=== PATIENT | male | born 1935 | race Caucasian/White ===

== ENCOUNTER 2017-09-24 16:38 | Outpatient (CLI) | payer MEDICARE ==
[2017-09-24 16:57] LABS: #Basophils 0.1 thou/uL (0.0-0.2); #Eosinphils 0.1 thou/uL (0.0-0.7); #Lymphocytes 1.2 thou/uL (1.20-3.40); #Monocytes 0.5 thou/uL (0.11-0.59); #Neutrophils 3.3 thou/uL (1.40-6.50); %Basophils 1.1 % (0.0-1.0); %Eosinophils 1.5 % (0.0-10.0); %Lymphocytes 23.4 % (21.0-51.0); %Monocytes 9.9 % (0.0-10.0); Hematocrit 42.3 % (42.0-52.0); Mean Platelet Volume 10.2 fL (7.4-10.4); Red Blood Cell (RBC) Count 4.53 mill/uL (4.70-6.10); White Blood Cell (WBC) Count 5.1 thou/uL (4.8-10.8)
[2017-09-24 17:18] LABS: ALT (SGPT) 11 U/L (8-55); AST (SGOT) 14 U/L (5-34); Alkaline Phosphatase 30 U/L (40-150); Anion Gap 12 mmol/L (10-20); BUN (Urea Nitrogen) 19 mg/dL (8.4-25.7); Bilirubin, Total 0.4 mg/dL (0.2-1.2); Calc. Creatinine Clearance 0 mL/min (70-130); Calcium 9.5 mg/dL (7.8-10.44); Carbon Dioxide 25 mmol/L (23-31); Chloride 107 mmol/L (98-107); Estimated GFR-MDRD 42; Globulin 2.5 g/dL (2.4-3.5); Protein, Total 6.6 g/dL (5.8-8.1)
== END 2017-09-24 16:39 | disposition home or self-care (01) ==
LOC: LABBT 16:38
PROVIDERS: ATTEND Surgery
DX: Z01.818 Encounter for other preprocedural examination (principal); K40.90 Unilateral inguinal hernia, without obstruction or gangrene, not specified as recurrent
CPT/HCPCS: 80053; 85025; 93005; 93010

== ENCOUNTER 2017-09-29 08:45 | Day surgery (SDC) | payer MEDICARE ==
[2017-09-24 16:48] VITALS: BMI 28.0
[2017-09-29] MEDS ORDERED: CEFAZOLIN/Water 2 GM/20 ML SYRINGE ONE (09:18)
[2017-09-29] MEDS ORDERED: Bupivacaine/Epinephrine 0.25% 30 ML VIAL ONE (10:20)
[2017-09-29] MEDS ORDERED: Fentanyl 250 MCG/5 ML VIAL ONE (10:27)
[2017-09-29] MEDS ORDERED: Lidocaine 2% PF 10 ML AMP (For Epidural Use) ONE (10:37)
[2017-09-29] MEDS ORDERED: ePHEDrine/0.9% NaCl/PF SYRINGE 50 mg/10 ml ONE (10:37)
[2017-09-29] MEDS ORDERED: Ondansetron HCl/PF 4 MG/2 ML Vial ONE (10:37)
[2017-09-29] MEDS ORDERED: Ketorolac Tromethamine 30 MG/ML VIAL ONE (10:37)
[2017-09-29] MEDS ORDERED: Lidocaine 1% PF 5 ML VIAL ONE (10:37)
[2017-09-29] MEDS ORDERED: Propofol 200 MG/20 ML VIAL ONE ×2 (10:37)
[2017-09-29] MEDS ORDERED: PHENYLEPHRINE-NS 100 MCG/ML 10 ML SYRINGE ONE (10:37)
--- NOTE | 2017-09-29 12:57 | OP ---
PREOPERATIVE DIAGNOSIS: Bilateral inguinal hernia. SURGEON: Samir Frye M.D. PROCEDURE PERFORMED: Bilateral inguinal hernia repair with mesh, left side incarcerated. INDICATIONS: An 81-year-old male with enlarging bilateral inguinal hernias, left side, symptomatic. FINDINGS: Left side contained sigmoid colon, which was reducible, there was also a sliding hernia. The right side contained reducible small bowel. PROCEDURE IN DETAIL: After informed consent was obtained, the patient was taken to the operating beau m and given general mask anesthesia. He was placed in the supine position. His groin was prepped an d draped in the usual fashion. Local anesthesia infiltrated subcutaneously and deep. A transverse l eft inguinal incision was performed. The subcu divided sharply. The external oblique fascia was elizabeth troyed. I could not even find a fiber, but the hernia was right there, so retracted down and was abl e to get a Demarcus drain around this large hernia sac, could not get it to reduce. The hernia sac wa s opened and then I was able to get it in reduction, it contained the sigmoid colon down into the lef t scrotal area and also the colon itself made up part of the hernia sac, making a sliding inguinal he rnia. I was able to then get the contents reduced and close the peritoneum with a running 0 silk sut ure. Once it was reduced, placed a PHS hernia system extended. The posterior layer was placed in th e preperitoneal space to maintain reduction and then sutured to the pubic tubercle medially with a 2- 0 Prolene suture. Laterally, I was able to find the external oblique fascia and tuck it under it. T hen hemostasis achieved with electrocautery and I was able to trace back the edges of the external ob lique fascia and I closed it with a running 3-0 Vicryl. Hemostasis assured. The Rafita's fascia serg sed with interrupted 3-0 Vicryl. Skin closed with a running subcuticular 4-0 Rapide. I then moved t o the right side and again a transverse right inguinal incision was performed. The subcu divided sha rply. At this time, there was fascia of the external oblique. This was incised in the direction of its fibers through the external ring. The spermatic cord was very large with the hernia sac and this was dissected circumferentially to release the hernia sac from the cord structures. There was also a large right cord lipoma that was dissected out. Its base was clamped and tied with 0 silk suture. The hernia was reduced. Reduction was maintained with a PHS hernia system extended. Posterior laye r placed in the preperitoneal space. Laterally, it was tucked under the external oblique fascia, med ially sutured to the pubic tubercle with a 2-0 Prolene suture. A notch was cut out from the spermati c cord. Hemostasis assured. External oblique fascia closed with a running 3-0 Vicryl. Rafita's serg sed with interrupted 3-0 Vicryl and the skin closed with a running subcuticular 4-0 Rapide[address] Steri-St rips applied. Sterile bandages applied. Patient tolerated the procedure well and transferred to [facility] in good condition. Sponge and needle count verified correct x2.
== END 2017-09-29 14:05 | disposition home or self-care (01) ==
LOC: SDC 08:45
PROVIDERS: ATTEND Surgery
PROC: 0YUA0JZ Supplement Bilateral Inguinal Region with Synthetic Substitute, Open Approach (ICD-10-PCS; principal; 2017-09-29)
DX: K40.30 Unilateral inguinal hernia, with obstruction, without gangrene, not specified as recurrent (principal); D17.6 Benign lipomatous neoplasm of spermatic cord; I10 Essential (primary) hypertension; E78.00 Pure hypercholesterolemia, unspecified; Z79.82 Long term (current) use of aspirin; Z79.890 Hormone replacement therapy; Z79.899 Other long term (current) drug therapy; Z98.42 Cataract extraction status, left eye; Z98.41 Cataract extraction status, right eye; Z90.49 Acquired absence of other specified parts of digestive tract; Z90.89 Acquired absence of other organs; Z98.890 Other specified postprocedural states; Z85.51 Personal history of malignant neoplasm of bladder
CPT/HCPCS: 49507; 49525; C1781; J1885; J2001; J2405; J2704; J3010